=== PATIENT | male | born 1960 | race African-American/Black ===

== ENCOUNTER 2019-12-12 13:27 | Emergency (ER) | payer MEDICAID ==
[~2019-12-12] VITALS: Ht 172.7 cm; Wt 127.0 kg
[2019-12-12] MEDS ORDERED: SODIUM CHLORIDE 0.9% 1,000 ML IV ONE (16:09)
[2019-12-12 17:00] VITALS: BP 120/73
== END 2019-12-12 17:33 | disposition left against medical advice (07) ==
LOC: ER 13:57
DX: R55 Syncope and collapse (principal); E11.9 Type 2 diabetes mellitus without complications; I10 Essential (primary) hypertension; I69.354 Hemiplegia and hemiparesis following cerebral infarction affecting left non-dominant side
CPT/HCPCS: 71045; 93005; 96360; 99283; J7030; Z7610

== ENCOUNTER 2024-02-23 11:36 | Inpatient (IN) | payer MEDICAID, OTHER ==
[~2024-02-23] VITALS: Ht 182.9 cm; Wt 113.4 kg
[2024-02-23] MEDS: HYDRALAZINE 20MG/ML VIAL IV ONE (12:30)
[2024-02-23 12:38] LABS: BASOPHILS % 0.6 % (0.0-2.0); EOSINOPHILS % 1.8 % (0.0-5.0); HEMATOCRIT. 46.9 % (42.0-52.0); HEMOGLOBIN. 15.7 g/dL (14.0-18.0); MEAN CORPUSCULAR HEMOGLOBIN 27.7 pg (28.0-32.0); MEAN CORPUSCULAR HGB CONC 33.4 g/dL (31.0-37.0); MEAN CORPUSCULAR VOLUME 82.9 fL (80.0-94.0); MEAN PLATELET VOLUME 7.8 fl (7.4-10.4); MONOCYTES % 5.6 % (2.0-8.0); PLATELET 297 x1000/uL (130-400); RED BLOOD CELL COUNT 5.65 mill/uL (4.7-6.1); RED CELL DISTRIBUTION WIDTH 15.6 % (11.6-14.6); WHITE BLOOD COUNT 10.9 x1000/uL (4.5-11.0)
[2024-02-23 12:44] LABS: ALANINE AMINOTRANSFERASE 10 IU/L (10-49); ALBUMIN 3.9 g/dL (3.2-4.8); ASPARTATE AMINOTRANSFERASE 24 IU/L (<34); BILIRUBIN TOTAL 0.4 mg/dL (0.1-1.0); CARBON DIOXIDE 26 mEq/L (21-32); CHLORIDE 103 mEq/L (98-107); CREATININE 1.5 mg/dL (0.6-1.3); GLUCOSE 307 mg/dL (70-105); POTASSIUM 4.4 mEq/L (3.5-5.1); SODIUM 135 mEq/L (136-145); TROPONIN I HIGH SENSITIVITY 10 ng/L (3.0-53); UREA NITROGEN BLOOD 21 mg/dL (9-23)
[2024-02-23 12:47] LABS: ETHANOL BLOOD < 10 mg/dL (<10)
[2024-02-23] MEDS: ASPIRIN 325MG EC TABLET PO ONE (12:55)
[2024-02-23 15:57] LABS: CLARITY URINE CLEAR (CLEAR); COLOR URINE YELLOW (YELLOW); GLUCOSE URINE 3+ (NEGATIVE); KETONES URINE NEGATIVE (NEGATIVE); LEUKOCYTE ESTERASE URINE NEGATIVE (NEGATIVE); NITRITE URINE NEGATIVE (NEGATIVE); OCCULT BLOOD URINE TRACE (NEGATIVE); PROTEIN URINE 3+ (NEGATIVE); SPECIFIC GRAVITY URINE 1.027 (1.005-1.030); UROBILINOGEN URINE 0.2 E.U./dL (0.2-1.0)
[2024-02-23 16:06] LABS: *AMPHETAMINES SCREEN URINE NEGATIVE (NEGATIVE); *BARBITURATES SCREEN URINE NEGATIVE (NEGATIVE); *BENZODIAZEPINES SCREEN URINE NEGATIVE (NEGATIVE); *COCAINE SCREEN URINE NEGATIVE (NEGATIVE); CANNABINOID URINE SCREEN NEGATIVE (NEGATIVE); ECSTASY MDMA SCREEN URINE NEGATIVE (NEGATIVE); METHADONE URINE SCREEN Neg (NEGATIVE); OPIATES URINE SCREEN NEGATIVE (NEGATIVE); PHENCYCLIDINE URINE SCREEN NEGATIVE (NEGATIVE)
[2024-02-23 16:44] LABS: RBC URINE 0-2 /hpf (0-2); WBC URINE 0-2 /hpf (0-2)
[2024-02-23 16:45] LABS: BACTERIA URINE NONE SEEN; SQUAMOUS EPITHELIAL CELL URINE NONE SEEN /lpf (RARE/1+)
[2024-02-23] MEDS: HYDRALAZINE 20MG/ML VIAL IV NR (21:37)
[2024-02-23] MEDS ORDERED: DEXTROSE 50% WATER 50ML SYRINGE IV PRN (23:30)
[2024-02-23] MEDS: BLOOD SUGAR DIAGNOSTIC STRIP TEST SCH (23:52)
[2024-02-24] MEDS: INSULIN GLARGINE 100 UNITS/ML SUBCUT SCH (00:04)
[2024-02-24] MEDS: INSULIN LISPRO 100 UNITS/ML SUBCUT SCH (00:05)
[2024-02-24] MEDS: CLONIDINE 0.1MG TABLET PO PRN (00:19)
[2024-02-24] MEDS ORDERED: GLIPIZ (06:48)
[2024-02-24] MEDS ORDERED: metformin (06:48)
[2024-02-24 08:00] VITALS: BP 130/77; PULSE 81; RESP 18; TEMP 97.8
[2024-02-24] MEDS ORDERED: INSULIN LISPRO 100 UNITS/ML SUBCUT SCH (08:20)
[2024-02-24] MEDS: AMLODIPINE 10MG TABLET PO SCH (09:19)
[2024-02-24] MEDS: ASPIRIN 81MG TABLET PO SCH (09:19)
[2024-02-24] MEDS ORDERED: METF-874 MT (11:59)
[2024-02-24] MEDS ORDERED: ATOR80TA MT (11:59)
[2024-02-24] MEDS ORDERED: TAMS-11 MT (11:59)
[2024-02-24] MEDS ORDERED: [UNRECOGNIZED DRUG - CODE] MT (11:59)
[2024-02-24] MEDS ORDERED: ASPI-1497 MT (11:59)
[2024-02-24] MEDS ORDERED: CLOP-31 MT (11:59)
[2024-02-24] MEDS ORDERED: BENA20TA77 MT (11:59)
[2024-02-24 12:00] VITALS: BP 154/97; PULSE 87; RESP 18; TEMP 97.7
[2024-02-24 14:49] VITALS: BP 154/97; PULSE 87; TEMP 97.7; O2SAT 98
[2024-02-24] MEDS ORDERED: ATORVASTATIN CALCIUM 40MG TABLET PO SCH (21:00)
[2024-02-24] MEDS ORDERED: ENOXAPARIN 30MG/0.3ML SYR SUBCUT SCH (21:00)
== END 2024-02-24 16:45 | disposition home or self-care (01) | DRG 45 ==
LOC: ER 11:36 → EDBEDREQ 13:43 → EDBEDREQTM 13:43 → CANBEDREQ 15:52 → 8WST 23:42
PROVIDERS: ADMIT Internal Medicine; ATTEND Internal Medicine
DX: I63.81 Other cerebral infarction due to occlusion or stenosis of small artery (principal); E11.65 Type 2 diabetes mellitus with hyperglycemia; I10 Essential (primary) hypertension; E66.9 Obesity, unspecified; I16.1 Hypertensive emergency; Z68.33 Body mass index [BMI] 33.0-33.9, adult
CPT/HCPCS: 36415; 70551; 71045; 80053; 80305; 80320; 81003; 82962; 84484; 85025; 93005; 97162; 99285; J0360; J1815; G0480

== ENCOUNTER 2025-02-21 19:32 | Inpatient (IN) | payer MEDICAID, OTHER ==
[~2025-02-21] VITALS: Ht 182.9 cm; Wt 149.7 kg
[~2025-02-21 19:32] MED LIST: ASPI-1497 MT; ATOR-388 MT; BENA20TA77 MT; CLOP-31 MT; METF-1150 MT; TAMS-54 MT; [UNRECOGNIZED DRUG - CODE] MT
[2025-02-21] MEDS: SODIUM CHLORIDE 0.9% 1,000 ML IV ONE (21:12)
[2025-02-21 21:22] LABS: BASOPHILS % 0.4 % (0.0-2.0); EOSINOPHILS % 0.5 % (0.0-5.0); HEMOGLOBIN. 14.5 g/dL (14.0-18.0); LYMPHOCYTES % 17.9 % (20.0-50.0); MEAN CORPUSCULAR HEMOGLOBIN 26.1 pg (28.0-32.0); MEAN CORPUSCULAR HGB CONC 32.3 g/dL (31.0-37.0); MEAN CORPUSCULAR VOLUME 80.8 fL (80.0-94.0); MEAN PLATELET VOLUME 7.6 fl (7.4-10.4); MONOCYTES % 7.3 % (2.0-8.0); NEUTROPHILS % 73.9 % (40.0-76.0); PLATELET 271 x1000/uL (130-400); RED BLOOD CELL COUNT 5.58 mill/uL (4.7-6.1); RED CELL DISTRIBUTION WIDTH 17.1 % (11.6-14.6); WHITE BLOOD COUNT 8.6 x1000/uL (4.5-11.0)
[2025-02-21 21:28] LABS: CHLORIDE 100 mEq/L (98-107); POTASSIUM 4.8 mEq/L (3.5-5.1); SODIUM 136 mEq/L (136-145)
[2025-02-21 21:30] LABS: CALCIUM 9.2 mg/dL (8.7-10.4); CARBON DIOXIDE 27 mEq/L (21-32)
[2025-02-21 21:34] LABS: CREATININE 1.7 mg/dL (0.6-1.3); GLUCOSE 299 mg/dL (70-105)
[2025-02-21 21:35] LABS: UREA NITROGEN BLOOD 36 mg/dL (9-23)
[2025-02-21 21:37] LABS: CREATINE KINASE 125 IU/L (46-171); TROPONIN I HIGH SENSITIVITY 13 ng/L (3.0-53)
[2025-02-22] VITALS (7 sets, daily range): BP systolic 112–164; BP diastolic 70–92; PULSE 77–104; RESP 17–20; TEMP 36.2–36.6; O2SAT 95–97
[2025-02-22] MEDS ORDERED: DEXTROSE 50% WATER 50ML SYRINGE IV PRN (01:45)
[2025-02-22] MEDS: BLOOD SUGAR DIAGNOSTIC STRIP TEST SCH (06:26)
[2025-02-22] MEDS: ATORVASTATIN CALCIUM 40MG TABLET PO SCH (08:36)
[2025-02-22] MEDS: CLOPIDOGREL 75MG TABLET PO SCH (08:38)
[2025-02-22] MEDS: LISINOPRIL 20MG TABLET PO SCH (08:38)
[2025-02-22] MEDS: METFORMIN HCL 500MG TABLET PO SCH (08:38)
[2025-02-22] MEDS: TAMSULOSIN HCL 0.4MG SR CAPSULE PO SCH (08:38)
[2025-02-22] MEDS: ASPIRIN 81MG TABLET PO SCH (08:39)
[2025-02-22] MEDS: INSULIN LISPRO 100 UNITS/ML SUBCUT SCH (08:41)
[2025-02-22] MEDS: INSULIN GLARGINE 100 UNITS/ML SUBCUT SCH (10:58)
[2025-02-22 16:36] LABS: CLARITY URINE CLEAR (CLEAR); COLOR URINE YELLOW (YELLOW); GLUCOSE URINE 2+ (NEGATIVE); KETONES URINE NEGATIVE (NEGATIVE); LEUKOCYTE ESTERASE URINE NEGATIVE (NEGATIVE); NITRITE URINE NEGATIVE (NEGATIVE); OCCULT BLOOD URINE TRACE (NEGATIVE); PROTEIN URINE 4+ (NEGATIVE); SPECIFIC GRAVITY URINE 1.023 (1.005-1.030); UROBILINOGEN URINE 0.2 E.U./dL (0.2-1.0)
[2025-02-22 17:29] LABS: BACTERIA URINE 1+
[2025-02-22 17:30] LABS: RBC URINE 0-2 /hpf (0-2); SQUAMOUS EPITHELIAL CELL URINE FEW /lpf (RARE/1+); WBC URINE 0-2 /hpf (0-2)
[2025-02-23] VITALS: BP 148/89; PULSE 81; RESP 19; TEMP 36.6; O2SAT 95
[2025-02-23 04:00] VITALS: BP 154/88; PULSE 81; RESP 18; TEMP 36.6; O2SAT 95
[2025-02-23 08:00] VITALS: BP 149/94; PULSE 77; RESP 18; TEMP 36.5; O2SAT 98
[2025-02-23 12:00] VITALS: BP 156/88; PULSE 92; RESP 19; TEMP 37; O2SAT 98
[2025-02-23 16:00] VITALS: BP 119/71; PULSE 83; RESP 18; TEMP 36.9; O2SAT 97
[2025-02-23 20:00] VITALS: BP 115/83; PULSE 90; RESP 19; TEMP 36.6; O2SAT 95
[2025-02-23] MEDS: INSULIN GLARGINE 100 UNITS/ML SUBCUT SCH (22:00)
[2025-02-24] VITALS (7 sets, daily range): BP systolic 132–152; BP diastolic 77–97; PULSE 74–85; RESP 18–19; TEMP 36.2–36.7; O2SAT 95–98
== END 2025-02-24 14:20 | disposition home or self-care (01) | DRG 420 ==
LOC: ER 19:32 → EDBEDREQTM 23:10 → EDBEDREQ 23:10 → 6EST 23:13
PROVIDERS: ADMIT Internal Medicine; ATTEND Internal Medicine
DX: E11.65 Type 2 diabetes mellitus with hyperglycemia (principal); N17.0 Acute kidney failure with tubular necrosis; I10 Essential (primary) hypertension; E66.01 Morbid (severe) obesity due to excess calories; I69.354 Hemiplegia and hemiparesis following cerebral infarction affecting left non-dominant side; Z68.41 Body mass index [BMI] 40.0-44.9, adult
CPT/HCPCS: 36415; 80048; 81003; 82550; 82962; 84484; 85025; 97162; 99285; J1815; J7030